=== PATIENT | male | born 1960 | race Caucasian/White ===

== ENCOUNTER 2016-10-26 17:36 | Emergency (ER) | payer BC, SELFPAY ==
[~2016-10-26 17:36] MED LIST: Sodium Chloride 0.9% 1,000 ML BAG ONE
[2016-10-26 18:03] LABS: #Basophils 0.1 thou/uL (0.0-0.2); #Eosinphils 0.2 thou/uL (0.0-0.7); #Lymphocytes 2.7 thou/uL (1.20-3.40); #Monocytes 0.8 thou/uL (0.11-0.59); #Neutrophils 5.2 thou/uL (1.40-6.50); %Basophils 1.2 % (0.0-1.0); %Eosinophils 2.3 % (0.0-10.0); %Lymphocytes 29.9 % (21.0-51.0); %Neutrophils 57.5 % (42.0-75.0); Mean Corpuscular HGB CONC 32.9 g/dL (32.0-36.0); Mean Corpuscular Volume 91.2 fl (80.0-94.0); Mean Platelet Volume 6.4 fL (7.4-10.4); Platelet Count 326 thou/uL (130-400); RBC Distribution Width 11.9 % (11.5-14.5); Red Blood Cell (RBC) Count 5.68 mill/uL (4.70-6.10)
[2016-10-26] MEDS ORDERED: Morphine Sulfate 2 MG/ML SYRINGE ONE ×2 (18:04→19:11)
[2016-10-26] MEDS ORDERED: Sulfameth/Trimethoprim DS 800-160mg TAB ONE (18:05)
[2016-10-26] MEDS ORDERED: Naproxen 500 MG TAB ONE (18:05)
[2016-10-26] MEDS ORDERED: Cephalexin 250 MG CAP ONE (18:05)
[2016-10-26] MEDS ORDERED: Adacel (T-DAP) 0.5 ML VIAL ONE (18:05)
[2016-10-26 18:07] LABS: PTT 33.3 SEC (22.9-36.1); Prothrombin Time 13.5 SEC (12.0-14.7)
[2016-10-26 18:07] LABS: Platelet Count 326 thou/uL (130-400)
[2016-10-26 18:18] LABS: ALT (SGPT) 19 U/L (8-55); AST (SGOT) 15 U/L (5-34); Albumin 4.6 g/dL (3.5-5.0); Alkaline Phosphatase 28 U/L (40-150); Anion Gap 17 mmol/L (10-20); BUN (Urea Nitrogen) 14 mg/dL (8.4-25.7); Bilirubin, Total 0.4 mg/dL (0.2-1.2); CK (CPK) 182 U/L (30-200); Calc. Creatinine Clearance 0 mL/min (70-130); Calcium 9.8 mg/dL (7.8-10.44); Carbon Dioxide 23 mmol/L (22-29); Chloride 108 mmol/L (98-107); Estimated GFR-MDRD 46; Globulin 3.1 g/dL (2.4-3.5); Glucose 106 mg/dL (70-105); Protein, Total 7.7 g/dL (6.0-8.3); Sodium 144 mmol/L (136-145)
[2016-10-26 18:23] LABS: PTT 33.3 SEC (22.9-36.1); Prothrombin Time 13.5 SEC (12.0-14.7)
[2016-10-26 18:34] LABS: D-Dimer Test 0.41 *mcg/mL (0.27-0.43); Fibrinogen 354 mg/dL (253-463)
[2016-10-26] MEDS ORDERED: Crotalidae Polyvalent Antivenin 1 GM VIAL ONE (19:07)
--- NOTE | 2016-10-26 20:47 | RAD ---
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 COMPARISON: None. FINDINGS: The lungs are clear. The cardiomediastinal silhouette is within normal limits. There is healed fract ure deformity involving the posterolateral 9th and 10th ribs. IMPRESSION: No acute cardiopulmonary abnormality. POS: [facility]
== END 2016-10-26 20:37 | disposition short-term general hospital (02) ==
LOC: MADERS 17:36
DX: T63.001A Toxic effect of unspecified snake venom, accidental (unintentional), initial encounter (principal)
CPT/HCPCS: 36415; 71010; 80053; 82550; 83880; 85025; 85049; 85300; 85362; 85379; 85384; 85610; 85730; 86850; 86900; 86901; 90471; 90715; 93005; 96374; 96376; J0840; J2270; J7050

== ENCOUNTER 2021-03-21 03:17 | Emergency (ER) | payer SELFPAY ==
[2021-03-21 03:44] LABS: #Basophils 0.1 thou/uL (0.0-0.2); #Eosinphils 0.2 thou/uL (0.0-0.7); #Lymphocytes 2.1 thou/uL (1.20-3.40); #Neutrophils 11.9 thou/uL (1.40-6.50); %Basophils 0.9 % (0.0-1.0); %Eosinophils 1.5 % (0.0-10.0); %Lymphocytes 13.7 % (21.0-51.0); %Monocytes 6.6 % (0.0-10.0); %Neutrophils 77.3 % (42.0-75.0); Hemoglobin 11.1 g/dL (14.0-18.0); Mean Corpuscular HGB CONC 33.9 g/dL (32.0-36.0); Mean Corpuscular Hemoglobin 30.5 pg (27.0-31.0); Mean Corpuscular Volume 90.2 fL (78.0-98.0); Mean Platelet Volume 5.9 fL (7.4-10.4); Platelet Count 313 thou/uL (130-400); RBC Distribution Width 11.9 % (11.5-14.5); Red Blood Cell (RBC) Count 3.64 mill/uL (4.70-6.10); White Blood Cell (WBC) Count 15.4 thou/uL (4.8-10.8)
[2021-03-21 04:04] LABS: Acetaminophen Less than 6.0 mcg/mL (10.0-30.0); Salicylate Less than 8.0 mg/dL (15.0-30.0)
[2021-03-21 04:06] LABS: ALT (SGPT) 10 U/L (8-55); AST (SGOT) 6 U/L (5-34); Albumin 3.3 g/dL (3.4-4.8); Alkaline Phosphatase 21 U/L (40-110); Anion Gap 11 mmol/L (10-20); BUN (Urea Nitrogen) 45 mg/dL (8.4-25.7); Bilirubin, Total 0.3 mg/dL (0.2-1.2); Calc. Creatinine Clearance 0 mL/min (70-130); Calcium 8.6 mg/dL (7.8-10.44); Carbon Dioxide 26 mmol/L (23-31); Chloride 109 mmol/L (98-107); Globulin 1.8 g/dL (2.4-3.5); Glucose 133 mg/dL (80-115); Potassium 4.5 mmol/L (3.5-5.1); Protein, Total 5.1 g/dL (5.8-8.1); Sodium 141 mmol/L (136-145)
[2021-03-21 04:07] LABS: CRP (Inflammatory) 0.77 mg/dL (= or < 0.5)
[2021-03-21] MEDS ORDERED: Sodium Chloride 0.9% 2,000 ML ONE (06:02)
[2021-03-21 08:06] LABS: Alcohol Less than 10 mg/dL (Less than 10)
== END 2021-03-21 09:20 | disposition home or self-care (01) ==
LOC: MADERS 03:17
DX: R55 Syncope and collapse (principal); E86.0 Dehydration; T50.995A Adverse effect of other drugs, medicaments and biological substances, initial encounter
CPT/HCPCS: 71045; 80053; 80307; 82550; 83880; 84484; 85025; 86140; 93005; 94760; J7050